=== PATIENT | female | born 1970 | race Caucasian/White ===

== ENCOUNTER 2022-11-04 04:23 | Emergency (ER) | payer OTHER ==
[2022-11-04] MEDS ORDERED: LORazepam 0.5 MG Tab PO ONE (05:16)
[2022-11-04] MEDS ORDERED: FLUoxetine 10 MG Cap PO ONE (05:16)
== END 2022-11-04 06:09 | disposition home or self-care (01) ==
LOC: JP.ED 04:23
DX: F41.0 Panic disorder [episodic paroxysmal anxiety] (principal); F32.A Depression, unspecified; F43.9 Reaction to severe stress, unspecified; Z88.0 Allergy status to penicillin; Z79.899 Other long term (current) drug therapy
CPT/HCPCS: 99282; 99283; A9270-GY